=== PATIENT | male | born 1955 | race Caucasian/White ===

== ENCOUNTER → 2016-10-06 | Outpatient (CLI) | payer BC, OTHER ==
--- NOTE | 2016-10-11 08:30 | SLEEPCENT ---
DATE OF STUDY: 10/06/2016 ORDERING PROVIDER: Latoya Bello NP Nocturnal polysomnography was performed for retitration of pressure therapy in this patient with obstructive sleep apnea syndrome and persistent symptoms despite bilevel pressure treatment. For testing, a Luxr Simplus full face mask of small size was used. An initial bilevel pressure of 15 over expiratory of 10 was applied to the circuit, and the lights were extinguished. 8 hours and 27 minutes of data were reviewed. There were 281 minutes of sleep identified. Sleep latency was prolonged at 42 minutes. Rapid eye movement (REM) latency was prolonged at 264 minutes. Sleep architecture initially was quite fragmented. This did improve late in the study on optimal pressure therapy. There were two REM periods appreciated. Overall sleep efficiency was reduced by periods of awake to 56.8%. The patient's electrocardiogram (EKG) showed a sinus rhythm with a slow rate of 46 beats per minute. Electroencephalogram (EEG) showed reasonably normal waveforms for awake and sleep. Persistence of respiratory events prompted an increase in continuous positive airway pressure (CPAP) pressure. The optimal pressure for sleep was found to be inspiratory 19 over expiratory 14. Despite this pressure therapy, limb activity was seen. There were three trains of 30 events, and the limb movement arousal index was 12.8. IMPRESSION: 1. Obstructive sleep apnea syndrome (G47.33). 2. Periodic limb movement disorder (G47.61). Limb movement arousal index 12.8. RECOMMENDATION: Nightly use of pressure therapy at an inspiratory pressure of 19 over expiratory pressure of 14 using a bilevel device will be sufficient to address the patient's respiratory events. Interventions to reduce the frequency of arousal from limb activity will be necessary to optimize the quality of sleep.
== END ==
LOC: M SLEEP 19:41
PROVIDERS: ATTEND Nurse Practitioner Adult Health
DX: G47.33 Obstructive sleep apnea (adult) (pediatric) (principal)